=== PATIENT | male | born 1965 | race African-American/Black ===

== ENCOUNTER 2017-08-09 12:44 | Inpatient (IN) | payer OTHER ==
[2017-08-09 14:01] VITALS: BMI 22.1
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
[2017-08-09] MEDS ORDERED: ACETAMINOPHEN 325 MG TABLET (FP) PO PRN (18:40)
[2017-08-09] MEDS ORDERED: MAGNESIUM HYDROX 2400MG/30ML ORAL SUSPENSION 30 ML CUP PO PRN (18:40)
[2017-08-09] MEDS ORDERED: MAG HYDROX/AL HYDROX/SIMETH 30 ML UNIT-DOSE CUP PO PRN (18:40)
[2017-08-09] MEDS ORDERED: IBUPROFEN 400 MG TABLET (FP) PO PRN (18:40)
[2017-08-09] MEDS ORDERED: hydrOXYzine PAMOATE 50 MG CAPSULE (FP) PO PRN (18:40)
[2017-08-09] MEDS ORDERED: MAGNESIUM CITRATE 300 ML BOTTLE PO PRN (18:40)
[2017-08-09] MEDS ORDERED: guaiFENesin/D-METHORPHAN HB 10 ML UNIT-DOSE CUPS PO PRN (18:40)
[2017-08-09] MEDS ORDERED: NICOTINE POLACRILEX 2 MG GUM BUC PRN (18:40)
[2017-08-09] MEDS ORDERED: P-EPHED 60MG/TRIPROLIDI 2.5MG TABLET PO PRN (18:40)
[2017-08-09] MEDS ORDERED: LOPERAMIDE HCL 2 MG CAPSULE PO PRN (18:40)
[2017-08-09] MEDS ORDERED: MENTHOL/PHENOL 1 EACH UD MM PRN (18:40)
[2017-08-09] MEDS ORDERED: METHADONE HCL 10 MG TABLET (FOR DETOX USE ONLY) PO ONE ×2 (19:00→23:00)
[2017-08-09] MEDS: diazePAM 5 MG TABLET PO PRN (19:38)
[2017-08-09] MEDS: NICOTINE 14 MG/24 HOURS TOPICAL PATCH TD SCH (19:40)
[2017-08-09] MEDS: THIAMINE HCL 100 MG TABLET (FP) PO SCH (22:47)
[2017-08-10 02:00] LABS: URINE APPEARANCE CLEAR; URINE BILIRUBIN NEGATIVE (NEGATIVE); URINE BLOOD NEGATIVE (NEGATIVE); URINE COLOR YELLOW; URINE GLUCOSE (UA) NEGATIVE (NEGATIVE); URINE KETONE NEGATIVE (NEGATIVE); URINE LEUK ESTERASE NEGATIVE (NEGATIVE); URINE NITRITE NEGATIVE (NEGATIVE); URINE PROTEIN NEGATIVE (NEGATIVE); URINE UROBILINOGEN NEGATIVE mg/dL (0.2-1.0)
[2017-08-10] MEDS: INSULIN SLIDING SCALE (NOVOLOG) 1 VIAL SQ SCH ×2 (06:14→17:43)
[2017-08-10] MEDS ORDERED: METHADONE HCL 10 MG TABLET (FOR DETOX USE ONLY) PO ONE (10:00)
[2017-08-10] MEDS: diazePAM 5 MG TABLET PO PRN (10:39)
[2017-08-10] MEDS: PRENATAL VITAMINS W/ FOLIC ACID TABLET (FP) PO SCH (10:39)
[2017-08-10] MEDS: LISINOPRIL 10 MG TABLET (FP) PO SCH (10:39)
[2017-08-10] MEDS: HYDROCHLOROTHIAZIDE 12.5 MG CAPSULE (FP) PO SCH (10:39)
[2017-08-10] MEDS: NICOTINE 14 MG/24 HOURS TOPICAL PATCH TD SCH (10:39)
[2017-08-10] MEDS: metFORMIN HCL 500 MG TABLET (FP) PO SCH (10:39)
[2017-08-10 10:52] LABS: HEMATOCRIT 41.3 % (35.4-49); HEMOGLOBIN 13.5 GM/dL (11.7-16.9); MCH 27.5 pg (25.7-33.7); MCHC 32.7 g/dl (32.0-35.9); MEAN CELL VOLUME 84.1 fl (80-96); MEAN PLT VOLUME 9.2 fl (7.5-11.1); PLATELET COUNT 241 K/MM3 (134-434); RBC 4.91 M/mm3 (4.00-5.60); WHITE BLOOD COUNT 5.9 K/mm3 (4.0-10.0)
[2017-08-10 11:21] LABS: CHLORIDE 104 mmol/L (98-107); POTASSIUM 4.8 mmol/L (3.5-5.1); SODIUM 141 mmol/L (136-145)
[2017-08-10 11:43] LABS: ALBUMIN 4.1 g/dl (3.4-5.0); ALK PHOS 57 U/L (45-117); ANION GAP 6 (8-16); BILIRUBIN,TOTAL 1.2 mg/dL (0.2-1.0); BLOOD UREA NITROGEN 14 mg/dL (7-18); CALCIUM 9.1 mg/dL (8.5-10.1); CO2 31 mmol/L (21-32); CREATININE 1.4 mg/dL (0.7-1.3); GLUCOSE,RANDOM 81 mg/dL (74-106); SGOT/AST 13 U/L (15-37); SGPT/ALT 16 U/L (12-78); TOT PROT 6.9 g/dl (6.4-8.2)
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
--- NOTE | 2017-08-10 16:36 | PN ---
S COWS - Scale Resting Pulse: 0= [place] 80 or Below Sweatin= Chills/Flushing Restless Observation: 1= Difficult to Sit Still Pupil Size: 0= Normal to Room Light Bone or Joint Aches: 2= Severe Diffuse Aches Runny Nose/ Eye Tearin= None GI Upset > 30mins: 2= Nausea/Diarrhea Tremor Observation of Outstretched Hands: 2= Slight Tremor Visible Yawning Observation: 1= 1-2x During Session Anxiety or Irritability: 2=Irritable/Anxious Goose Flesh Skin: 3=Piloerection COWS Score: 14 S Progress Note (SOAP) Subjective: Nausea, Anxious, Tremors, Sweating. Objective: PT. A & O X 3, OBSERVED AMBULATING ON UNIT. NO ACUTE DISTRESS. 08/10/17 16:36 Vital Signs Temperature 98.0 F 08/10/17 13:40 Pulse Rate 58 L 08/10/17 13:40 Respiratory Rate 18 08/10/17 13:40 Blood Pressure 143/93 08/10/17 13:40 O2 Sat by Pulse Oximetry (%) Laboratory Tests 08/09/17 08/10/17 08/10/17 22:51 05:28 06:00 WBC 5.9 RBC 4.91 Hgb 13.5 Hct 41.3 MCV 84.1 MCH 27.5 MCHC 32.7 RDW 14.0 Plt Count 241 MPV 9.2 Sodium Potassium Chloride Carbon Dioxide Anion Gap BUN Creatinine Creat Clearance w eGFR POC Glucometer 99 Random Glucose Calcium Total Bilirubin AST ALT Alkaline Phosphatase Total Protein Albumin Urine Color Yellow Urine Appearance Clear Urine pH 5.0 Ur Specific [place] 1.017 Urine Protein Negative Urine Glucose (UA) Negative Urine Ketones Negative Urine Blood Negative Urine Nitrite Negative Urine Bilirubin Negative Urine Urobilinogen Negative Ur Leukocyte Esterase Negative RPR Titer 08/10/17 08/10/17 08/10/17 06:00 06:00 15:44 WBC RBC Hgb Hct MCV MCH MCHC RDW Plt Count MPV Sodium 141 Potassium 4.8 Chloride 104 Carbon Dioxide 31 Anion Gap 6 L BUN 14 Creatinine 1.4 H Creat Clearance w eGFR 53.64 POC Glucometer 130 Random Glucose 81 Calcium 9.1 Total Bilirubin 1.2 H D AST 13 L ALT 16 D Alkaline Phosphatase 57 Total Protein 6.9 Albumin 4.1 Urine Color Urine Appearance Urine pH Ur Specific [place] Urine Protein Urine Glucose (UA) Urine Ketones Urine Blood Urine Nitrite Urine Bilirubin Urine Urobilinogen Ur Leukocyte Esterase RPR Titer Nonreactive LABS NOTED. Assessment: 08/10/17 16:36 WITHDRAWAL SYMPTOMS. Plan: CONTINUE DETOX. BMP ON 08/12/2017 FOR ABNORMAL ADMISSION RENAL LAB VALUES. D/C IBUPROFEN AND MAGNESIUM-CONTAINING MEDS. INCREASE DAILY PO FLUID INTAKE.
[2017-08-10] MEDS: MIRTAZAPINE 15 MG TABLET (FP) PO SCH (22:45)
[2017-08-10] MEDS: THIAMINE HCL 100 MG TABLET (FP) PO SCH (22:45)
[2017-08-11] MEDS: INSULIN SLIDING SCALE (NOVOLOG) 1 VIAL SQ SCH ×2 (06:45→16:30)
[2017-08-11] MEDS ORDERED: METHADONE HCL 5 MG TABLET (FOR DETOX USE ONLY) PO ONE (10:00)
[2017-08-11] MEDS: NICOTINE 14 MG/24 HOURS TOPICAL PATCH TD SCH (10:24)
[2017-08-11] MEDS: LISINOPRIL 10 MG TABLET (FP) PO SCH (10:24)
[2017-08-11] MEDS: diazePAM 5 MG TABLET PO PRN (10:24)
[2017-08-11] MEDS: HYDROCHLOROTHIAZIDE 12.5 MG CAPSULE (FP) PO SCH (10:24)
[2017-08-11] MEDS: PRENATAL VITAMINS W/ FOLIC ACID TABLET (FP) PO SCH (10:24)
[2017-08-11] MEDS: metFORMIN HCL 500 MG TABLET (FP) PO SCH (10:24)
--- NOTE | 2017-08-11 13:21 | EKG ---
Test Reason : Blood Pressure : / mmHG Vent. Rate : 057 BPM Atrial Rate : 057 BPM P-R Int : 160 ms QRS Dur : 086 ms QT Int : 440 ms P-R-T Axes : 060 036 -23 degrees QTc Int : 428 ms SINUS BRADYCARDIA WITH SINUS ARRHYTHMIA POOR R WAVE PROGRESSION ABNORMAL ECG NO PREVIOUS ECGS AVAILABLE CLINICAL CORRELATION IS RECOMMENDED Confirmed by BENOIT WILLIAMSON MD ([id number]) on 08/11/2017 1:21:04 PM Referred By: Confirmed By:BENOIT WILLIAMSON MD
--- NOTE | 2017-08-11 16:42 | PN ---
S COWS - Scale Resting Pulse: 1= [place] 81-100 Sweatin= No chills or Flushing Restless Observation: 0= Sits Still Pupil Size: 0= Normal to Room Light Bone or Joint Aches: 1= Mild Discomfort Runny Nose/ Eye Tearin= None GI Upset > 30mins: 3= Vomiting/Diarrhea Tremor Observation of Outstretched Hands: 2= Slight Tremor Visible Yawning Observation: 1= 1-2x During Session Anxiety or Irritability: 2=Irritable/Anxious Goose Flesh Skin: 3=Piloerection COWS Score: 13 BHS Progress Note (SOAP) Subjective: Vomiting, Anxious, Fatigue, Tremors. Objective: PT A & O X 3, OBSERVED AMBULATING ON UNIT. NO ACUTE DISTRESS. 08/11/17 16:42 Vital Signs Temperature 96.6 F L 08/11/17 09:54 Pulse Rate 78 08/11/17 09:54 Respiratory Rate 18 08/11/17 09:54 Blood Pressure 164/90 08/11/17 09:54 O2 Sat by Pulse Oximetry (%) Laboratory Tests 08/09/17 08/10/17 08/10/17 22:51 05:28 06:00 WBC 5.9 RBC 4.91 Hgb 13.5 Hct 41.3 MCV 84.1 MCH 27.5 MCHC 32.7 RDW 14.0 Plt Count 241 MPV 9.2 Sodium Potassium Chloride Carbon Dioxide Anion Gap BUN Creatinine Creat Clearance w eGFR POC Glucometer 99 Random Glucose Calcium Total Bilirubin AST ALT Alkaline Phosphatase Total Protein Albumin Urine Color Yellow Urine Appearance Clear Urine pH 5.0 Ur Specific [place] 1.017 Urine Protein Negative Urine Glucose (UA) Negative Urine Ketones Negative Urine Blood Negative Urine Nitrite Negative Urine Bilirubin Negative Urine Urobilinogen Negative Ur Leukocyte Esterase Negative RPR Titer Hepatitis C Antibody 08/10/17 08/10/17 08/10/17 06:00 06:00 08:30 WBC RBC Hgb Hct MCV MCH MCHC RDW Plt Count MPV Sodium 141 Potassium 4.8 Chloride 104 Carbon Dioxide 31 Anion Gap 6 L BUN 14 Creatinine 1.4 H Creat Clearance w eGFR 53.64 POC Glucometer Random Glucose 81 Calcium 9.1 Total Bilirubin 1.2 H D AST 13 L ALT 16 D Alkaline Phosphatase 57 Total Protein 6.9 Albumin 4.1 Urine Color Urine Appearance Urine pH Ur Specific [place] Urine Protein Urine Glucose (UA) Urine Ketones Urine Blood Urine Nitrite Urine Bilirubin Urine Urobilinogen Ur Leukocyte Esterase RPR Titer Nonreactive Hepatitis C Antibody >11.0 H 08/10/17 15:44 WBC RBC Hgb Hct MCV MCH MCHC RDW Plt Count MPV Sodium Potassium Chloride Carbon Dioxide Anion Gap BUN Creatinine Creat Clearance w eGFR POC Glucometer 130 Random Glucose Calcium Total Bilirubin AST ALT Alkaline Phosphatase Total Protein Albumin Urine Color Urine Appearance Urine pH Ur Specific [place] Urine Protein Urine Glucose (UA) Urine Ketones Urine Blood Urine Nitrite Urine Bilirubin Urine Urobilinogen Ur Leukocyte Esterase RPR Titer Hepatitis C Antibody LABS NOTED. PATIENT HAS A HISTORY OF HEPATITIS C (TREATED). 08/11/17 16:45 Assessment: 08/11/17 16:43 WITHDRAWAL SYMPTOMS. Plan: CONTINUE DETOX.
[2017-08-11] MEDS: THIAMINE HCL 100 MG TABLET (FP) PO SCH (22:45)
[2017-08-11] MEDS: MIRTAZAPINE 15 MG TABLET (FP) PO SCH (22:45)
[2017-08-12] MEDS: diazePAM 5 MG TABLET PO PRN (06:06)
[2017-08-12] MEDS: INSULIN SLIDING SCALE (NOVOLOG) 1 VIAL SQ SCH ×2 (06:37→16:41)
[2017-08-12 09:59] LABS: CHLORIDE 104 mmol/L (98-107); POTASSIUM 3.8 mmol/L (3.5-5.1); SODIUM 141 mmol/L (136-145)
[2017-08-12] MEDS ORDERED: METHADONE HCL 5 MG TABLET (FOR DETOX USE ONLY) PO ONE (10:00)
[2017-08-12 10:05] LABS: ANION GAP 9 (8-16); BLOOD UREA NITROGEN 16 mg/dL (7-18); CALCIUM 8.4 mg/dL (8.5-10.1); CO2 28 mmol/L (21-32); CREATININE 1.3 mg/dL (0.7-1.3); GLUCOSE,RANDOM 103 mg/dL (74-106)
[2017-08-12] MEDS: HYDROCHLOROTHIAZIDE 12.5 MG CAPSULE (FP) PO SCH (10:26)
[2017-08-12] MEDS: LISINOPRIL 10 MG TABLET (FP) PO SCH (10:26)
[2017-08-12] MEDS: PRENATAL VITAMINS W/ FOLIC ACID TABLET (FP) PO SCH (10:26)
[2017-08-12] MEDS: metFORMIN HCL 500 MG TABLET (FP) PO SCH (10:27)
[2017-08-12] MEDS: NICOTINE 14 MG/24 HOURS TOPICAL PATCH TD SCH (10:27)
--- NOTE | 2017-08-12 11:00 | PN ---
S Progress Note (SOAP) Subjective: ANXIETY,SWEATS,NAUSEA/VOMITING. Objective: 08/12/17 10:56 Vital Signs Temperature 97.7 F 08/12/17 09:04 Pulse Rate 49 L 08/12/17 09:04 Respiratory Rate 18 08/12/17 09:04 Blood Pressure 149/94 08/12/17 09:04 O2 Sat by Pulse Oximetry (%) Laboratory Last Values WBC 5.9 K/mm3 (4.0-10.0) 08/10/17 06:00 RBC 4.91 M/mm3 (4.00-5.60) 08/10/17 06:00 Hgb 13.5 GM/dL (11.7-16.9) 08/10/17 06:00 Hct 41.3 % (35.4-49) 08/10/17 06:00 MCV 84.1 fl (80-96) 08/10/17 06:00 MCH 27.5 pg (25.7-33.7) 08/10/17 06:00 MCHC 32.7 g/dl (32.0-35.9) 08/10/17 06:00 RDW 14.0 % (11.9-15.9) 08/10/17 06:00 Plt Count 241 K/MM3 (134-434) 08/10/17 06:00 MPV 9.2 fl (7.5-11.1) 08/10/17 06:00 Sodium 141 mmol/L (136-145) 08/12/17 07:00 Potassium 3.8 mmol/L (3.5-5.1) D 08/12/17 07:00 Chloride 104 mmol/L (98-107) 08/12/17 07:00 Carbon Dioxide 28 mmol/L (21-32) 08/12/17 07:00 Anion Gap 9 (8-16) 08/12/17 07:00 BUN 16 mg/dL (7-18) 08/12/17 07:00 Creatinine 1.3 mg/dL (0.7-1.3) 08/12/17 07:00 Creat Clearance w eGFR 53.64 (>60) 08/10/17 06:00 POC Glucometer 103 UNITS (80-120) 08/12/17 06:04 Random Glucose 103 mg/dL (74-106) D 08/12/17 07:00 Calcium 8.4 mg/dL (8.5-10.1) L 08/12/17 07:00 Total Bilirubin 1.2 mg/dL (0.2-1.0) H D 08/10/17 06:00 AST 13 U/L (15-37) L 08/10/17 06:00 ALT 16 U/L (12-78) D 08/10/17 06:00 Alkaline Phosphatase 57 U/L (45-117) 08/10/17 06:00 Total Protein 6.9 g/dl (6.4-8.2) 08/10/17 06:00 Albumin 4.1 g/dl (3.4-5.0) 08/10/17 06:00 Urine Color Yellow 08/09/17 22:51 Urine Appearance Clear 08/09/17 22:51 Urine pH 5.0 (5.0-8.0) 08/09/17 22:51 Ur Specific [place] 1.017 (1.001-1.035) 08/09/17 22:51 Urine Protein Negative (NEGATIVE) 08/09/17 22:51 Urine Glucose (UA) Negative (NEGATIVE) 08/09/17 22:51 Urine Ketones Negative (NEGATIVE) 08/09/17 22:51 Urine Blood Negative (NEGATIVE) 08/09/17 22:51 Urine Nitrite Negative (NEGATIVE) 08/09/17 22:51 Urine Bilirubin Negative (NEGATIVE) 08/09/17 22:51 Urine Urobilinogen Negative mg/dL (0.2-1.0) 08/09/17 22:51 Ur Leukocyte Esterase Negative (NEGATIVE) 08/09/17 22:51 RPR Titer Nonreactive (NONREACTIVE) 08/10/17 06:00 Hepatitis C Antibody >11.0 s/co ratio (0.0-0.9) H 08/10/17 08:30 PT HAS A HX OF HEP C TREATMENT WITH [facility]. Assessment: 08/12/17 11:00 WITHDRAWAL SX Plan: CONTINUE DETOX ZOFRAN PRN
[2017-08-12] MEDS ORDERED: ONDANSETRON *ODT* 4 MG TABLET SL PRN (11:04)
--- NOTE | 2017-08-12 12:17 | PN ---
Psychiatric Progress Note Vital Signs: Vital Signs Period Temp Pulse Resp BP Sys/Flores Pulse Ox Last 24 Hr 97.4 F-98.7 F 49-94 18-20 119-152/71-94 Date of Session: 08/12/17 Chief Complaint:: " I want to restart antidepressant medications.I feel depressed." HPI: Day 4 of detoxification treatment for opioid and cocaine dependence.Patient approached jingle writer with complaints of anhedonia,low energy, dysphoric/depressed mood and feelings of worthlessness.Mr Montelongo recalls that wellbutrin " used to be helpful " and he expresses the wish to resume that medication. ROS: Unremarkable. Current Medications: Active Medications Generic Name Dose Route Start Last Admin Trade Name Freq PRN Reason Stop Dose Admin Acetaminophen 650 mg 08/09/17 18:40 Tylenol - PO Q4H PRN FEVER Diazepam 10 mg 08/09/17 18:40 08/12/17 06:06 Valium - PO 08/12/17 18:39 10 mg Q4H PRN Administration WITHDRAWAL(CONT SUBST) Eucalyptus/Menthol/Phenol/Sorbitol 1 each 08/09/17 18:40 Cepastat Lozenge - MM Q4H PRN SORE THROAT Guaifenesin 10 ml 08/09/17 18:40 Robitussin Dm - PO Q6H PRN COUGH Hydrochlorothiazide 12.5 mg 08/10/17 10:00 08/12/17 10:26 Hctz - PO 12.5 mg DAILY JG Administration Hydroxyzine Pamoate 50 mg 08/09/17 18:40 08/09/17 22:47 Vistaril - PO 50 mg Q4H PRN Administration AGITATION Insulin Aspart 1 vial 08/10/17 07:00 08/12/17 06:37 Novolog Vial Sliding Scale - SQ Not Given [facility] Protocol Lisinopril 10 mg 08/10/17 10:00 08/12/17 10:26 Prinivil PO 10 mg DAILY JG Administration Loperamide HCl 4 mg 08/09/17 18:40 Imodium - PO Q6H PRN DIARRHEA Metformin HCl 500 mg 08/10/17 10:00 08/12/17 10:27 Glucophage - PO 500 mg DAILY JG Administration Methadone HCl 5 mg 08/14/17 06:00 Dolophine - PO 02/07/18 06:01 ONCE@0600 ONE Methadone HCl 10 mg 08/13/17 10:00 Dolophine - PO 08/13/17 10:01 ONCE ONE Mirtazapine 15 mg 08/10/17 22:00 08/11/17 22:45 Remeron - PO Not Given HS JG Nicotine 14 mg 08/09/17 18:45 08/12/17 10:27 Nicoderm Patch - TD Not Given DAILY JG Nicotine Polacrilex 2 mg 08/09/17 18:40 Nicorette Gum - BUC Q2H PRN NICOTINE REPLACEMENT RX Ondansetron HCl 4 mg 08/12/17 11:04 08/12/17 11:30 Zofran Odt - SL 4 mg Q6H PRN Administration NAUSEA AND/OR VOMITING Multivit/Folic Acid/Iron 1 tab 08/10/17 10:00 08/12/17 10:26 Vitamins (Sjr) - PO 1 tab DAILY JG Administration Pseudoephedrine/Triprolidine 1 combo 08/09/17 18:40 Actifed - PO TID PRN NASAL CONGESTION Thiamine HCl 100 mg 08/09/17 22:00 08/11/17 22:45 Vitamin B1 - PO Not Given HS JG Medication(s) Change(s): Available antidepressants reviewed with patient.Bupropion is selected on the basis of patient's preferences,good tolerability and prior history of efficacy.Wellbutrin XL 150 mg po daily is added to the regimen.Side effects/benefits discussed with patient.He is made aware of risk of seizures.Consent (verbal) obtained from the patient. Current Side Effect: No Lab tests ordered: No Lab tests reviewed: Yes Provider note:: Met with patient. Total face to face time:: 35 Mental Status Exam - Mental Status Exam Alert and Oriented to: Time, Place, Person Cognitive Function: Good Patient Appearance: Well Groomed Mood: Sad, Withdrawn, Anxious Affect: Mood Congruent, Constricted Patient Behavior: Appropriate, Cooperative Speech Pattern: Clear, Appropriate Voice Loudness: Normal Thought Process: Intact, Goal Oriented Thought Disorder: Not Present Hallucinations: Denies Suicidal Ideation: Denies Homicidal Ideation: Denies Insight/Judgement: Fair Sleep: Fair Appetite: Good Muscle strength/Tone: Normal Gait/Station: Normal Psychiatric Treatment Plan - Problem List (1) Depressive disorder Current Visit: Yes (2) Opioid dependence with withdrawal Current Visit: Yes (3) Cocaine dependence Current Visit: Yes Qualifiers: Substance use status: uncomplicated Qualified Code(s): F14.20 - Cocaine dependence, uncomplicated (4) Nicotine dependence Current Visit: Yes Qualifiers: Nicotine product type: cigarettes Substance use status: in withdrawal Qualified Code(s): F17.213 - Nicotine dependence, cigarettes, with withdrawal (5) Substance induced mood disorder Current Visit: Yes (6) PTSD (post-traumatic stress disorder) Current Visit: No Comment: As per records.Currently asymptomatic.Non compliant with medications.Lost to OPD care. (7) Insomnia Current Visit: Yes
[2017-08-12] MEDS: THIAMINE HCL 100 MG TABLET (FP) PO SCH (22:35)
[2017-08-12] MEDS: MIRTAZAPINE 15 MG TABLET (FP) PO SCH (22:35)
[2017-08-13] MEDS: INSULIN SLIDING SCALE (NOVOLOG) 1 VIAL SQ SCH ×2 (06:48→16:45)
[2017-08-13] MEDS ORDERED: METHADONE HCL 10 MG TABLET (FOR DETOX USE ONLY) PO ONE (10:00)
[2017-08-13] MEDS: PRENATAL VITAMINS W/ FOLIC ACID TABLET (FP) PO SCH (10:21)
[2017-08-13] MEDS: metFORMIN HCL 500 MG TABLET (FP) PO SCH (10:21)
[2017-08-13] MEDS: LISINOPRIL 10 MG TABLET (FP) PO SCH (10:21)
[2017-08-13] MEDS: HYDROCHLOROTHIAZIDE 12.5 MG CAPSULE (FP) PO SCH (10:21)
[2017-08-13] MEDS: NICOTINE 14 MG/24 HOURS TOPICAL PATCH TD SCH (10:22)
--- NOTE | 2017-08-13 11:20 | PN ---
[facility] Progress Note (SOAP) Subjective: SLIGHT ANXIETY. REPORTS FEELING BETTER. NAD. Objective: 08/13/17 11:16 Vital Signs Temperature 98.1 F 08/13/17 09:10 Pulse Rate 49 L 08/13/17 09:10 Respiratory Rate 18 08/13/17 09:10 Blood Pressure 155/86 08/13/17 09:10 O2 Sat by Pulse Oximetry (%) Laboratory Last Values WBC 5.9 K/mm3 (4.0-10.0) 08/10/17 06:00 RBC 4.91 M/mm3 (4.00-5.60) 08/10/17 06:00 Hgb 13.5 GM/dL (11.7-16.9) 08/10/17 06:00 Hct 41.3 % (35.4-49) 08/10/17 06:00 MCV 84.1 fl (80-96) 08/10/17 06:00 MCH 27.5 pg (25.7-33.7) 08/10/17 06:00 MCHC 32.7 g/dl (32.0-35.9) 08/10/17 06:00 RDW 14.0 % (11.9-15.9) 08/10/17 06:00 Plt Count 241 K/MM3 (134-434) 08/10/17 06:00 MPV 9.2 fl (7.5-11.1) 08/10/17 06:00 Sodium 141 mmol/L (136-145) 08/12/17 07:00 Potassium 3.8 mmol/L (3.5-5.1) D 08/12/17 07:00 Chloride 104 mmol/L (98-107) 08/12/17 07:00 Carbon Dioxide 28 mmol/L (21-32) 08/12/17 07:00 Anion Gap 9 (8-16) 08/12/17 07:00 BUN 16 mg/dL (7-18) 08/12/17 07:00 Creatinine 1.3 mg/dL (0.7-1.3) 08/12/17 07:00 Creat Clearance w eGFR 53.64 (>60) 08/10/17 06:00 POC Glucometer 94 UNITS (80-120) 08/13/17 05:36 Random Glucose 103 mg/dL (74-106) D 08/12/17 07:00 Calcium 8.4 mg/dL (8.5-10.1) L 08/12/17 07:00 Total Bilirubin 1.2 mg/dL (0.2-1.0) H D 08/10/17 06:00 AST 13 U/L (15-37) L 08/10/17 06:00 ALT 16 U/L (12-78) D 08/10/17 06:00 Alkaline Phosphatase 57 U/L (45-117) 08/10/17 06:00 Total Protein 6.9 g/dl (6.4-8.2) 08/10/17 06:00 Albumin 4.1 g/dl (3.4-5.0) 08/10/17 06:00 Urine Color Yellow 08/09/17 22:51 Urine Appearance Clear 08/09/17 22:51 Urine pH 5.0 (5.0-8.0) 08/09/17 22:51 Ur Specific [place] 1.017 (1.001-1.035) 08/09/17 22:51 Urine Protein Negative (NEGATIVE) 08/09/17 22:51 Urine Glucose (UA) Negative (NEGATIVE) 08/09/17 22:51 Urine Ketones Negative (NEGATIVE) 08/09/17 22:51 Urine Blood Negative (NEGATIVE) 08/09/17 22:51 Urine Nitrite Negative (NEGATIVE) 08/09/17 22:51 Urine Bilirubin Negative (NEGATIVE) 08/09/17 22:51 Urine Urobilinogen Negative mg/dL (0.2-1.0) 08/09/17 22:51 Ur Leukocyte Esterase Negative (NEGATIVE) 08/09/17 22:51 RPR Titer Nonreactive (NONREACTIVE) 08/10/17 06:00 Hepatitis C Antibody >11.0 s/co ratio (0.0-0.9) H 08/10/17 08:30 EKG:SINUS BRADYCARDIA WITH SINUS ARRHYTHMIA POOR R WAVE PROGRESSION ABNORMAL ECG NO PREVIOUS ECG PT IS ASSYMPTOMATIC Assessment: 08/13/17 11:16 WITHDRAWAL SX Plan: CONTINUE DETOX REPEAT EKG FOR CORRELATION
--- NOTE | 2017-08-13 13:09 | EKG ---
Test Reason : Blood Pressure : / mmHG Vent. Rate : 058 BPM Atrial Rate : 058 BPM P-R Int : 170 ms QRS Dur : 086 ms QT Int : 444 ms P-R-T Axes : 069 038 022 degrees QTc Int : 435 ms SINUS BRADYCARDIA OTHERWISE NORMAL ECG WHEN COMPARED WITH ECG OF 09-AUG-2017 19:45, NONSPECIFIC T WAVE ABNORMALITY HAS REPLACED INVERTED T WAVES IN INFERIOR LEADS Confirmed by Harsha Funez ([id number]) on 08/13/2017 1:09:24 PM Referred By: Confirmed By:Harsha Funez
[2017-08-13] MEDS: THIAMINE HCL 100 MG TABLET (FP) PO SCH (22:22)
[2017-08-13] MEDS: MIRTAZAPINE 15 MG TABLET (FP) PO SCH (22:22)
[2017-08-14] MEDS ORDERED: METHADONE HCL 5 MG TABLET (FOR DETOX USE ONLY) PO ONE (06:00)
[2017-08-14] MEDS: INSULIN SLIDING SCALE (NOVOLOG) 1 VIAL SQ SCH (07:08)
[2017-08-14 09:10] VITALS: BP 127/87; PULSE 63; TEMP 96.9
[2017-08-14] MEDS: NICOTINE 14 MG/24 HOURS TOPICAL PATCH TD SCH (10:00)
[2017-08-14] MEDS: HYDROCHLOROTHIAZIDE 12.5 MG CAPSULE (FP) PO SCH (10:00)
[2017-08-14] MEDS: metFORMIN HCL 500 MG TABLET (FP) PO SCH (10:00)
[2017-08-14] MEDS: LISINOPRIL 10 MG TABLET (FP) PO SCH (10:00)
--- NOTE | 2017-08-14 10:01 | DS ---
[facility] Detox Discharge Summary Admission Date: 08/09/17 Discharge Date: 08/14/17 - History Present History: Cocaine Dependence, Opioid Dependence Additional Comments: DETOX COMPLETED.ALERT O X 3. NAD. Pertinent Past History: DM HTN HEP C - Physical Exam Results Vital Signs: Vital Signs Temperature 96.9 F L 08/14/17 09:10 Pulse Rate 63 08/14/17 09:10 Respiratory Rate 18 08/14/17 09:10 Blood Pressure 127/87 08/14/17 09:10 O2 Sat by Pulse Oximetry (%) Pertinent Admission Physical Exam Findings: WITHDRAWAL SX Laboratory Last Values WBC 5.9 K/mm3 (4.0-10.0) 08/10/17 06:00 RBC 4.91 M/mm3 (4.00-5.60) 08/10/17 06:00 Hgb 13.5 GM/dL (11.7-16.9) 08/10/17 06:00 Hct 41.3 % (35.4-49) 08/10/17 06:00 MCV 84.1 fl (80-96) 08/10/17 06:00 MCH 27.5 pg (25.7-33.7) 08/10/17 06:00 MCHC 32.7 g/dl (32.0-35.9) 08/10/17 06:00 RDW 14.0 % (11.9-15.9) 08/10/17 06:00 Plt Count 241 K/MM3 (134-434) 08/10/17 06:00 MPV 9.2 fl (7.5-11.1) 08/10/17 06:00 Sodium 141 mmol/L (136-145) 08/12/17 07:00 Potassium 3.8 mmol/L (3.5-5.1) D 08/12/17 07:00 Chloride 104 mmol/L (98-107) 08/12/17 07:00 Carbon Dioxide 28 mmol/L (21-32) 08/12/17 07:00 Anion Gap 9 (8-16) 08/12/17 07:00 BUN 16 mg/dL (7-18) 08/12/17 07:00 Creatinine 1.3 mg/dL (0.7-1.3) 08/12/17 07:00 Creat Clearance w eGFR 53.64 (>60) 08/10/17 06:00 POC Glucometer 96 UNITS (80-120) 08/14/17 05:51 Random Glucose 103 mg/dL (74-106) D 08/12/17 07:00 Calcium 8.4 mg/dL (8.5-10.1) L 08/12/17 07:00 Total Bilirubin 1.2 mg/dL (0.2-1.0) H D 08/10/17 06:00 AST 13 U/L (15-37) L 08/10/17 06:00 ALT 16 U/L (12-78) D 08/10/17 06:00 Alkaline Phosphatase 57 U/L (45-117) 08/10/17 06:00 Total Protein 6.9 g/dl (6.4-8.2) 08/10/17 06:00 Albumin 4.1 g/dl (3.4-5.0) 08/10/17 06:00 Urine Color Yellow 08/09/17 22:51 Urine Appearance Clear 08/09/17 22:51 Urine pH 5.0 (5.0-8.0) 08/09/17 22:51 Ur Specific [place] 1.017 (1.001-1.035) 08/09/17 22:51 Urine Protein Negative (NEGATIVE) 08/09/17 22:51 Urine Glucose (UA) Negative (NEGATIVE) 08/09/17 22:51 Urine Ketones Negative (NEGATIVE) 08/09/17 22:51 Urine Blood Negative (NEGATIVE) 08/09/17 22:51 Urine Nitrite Negative (NEGATIVE) 08/09/17 22:51 Urine Bilirubin Negative (NEGATIVE) 08/09/17 22:51 Urine Urobilinogen Negative mg/dL (0.2-1.0) 08/09/17 22:51 Ur Leukocyte Esterase Negative (NEGATIVE) 08/09/17 22:51 RPR Titer Nonreactive (NONREACTIVE) 08/10/17 06:00 Hepatitis C Antibody >11.0 s/co ratio (0.0-0.9) H 08/10/17 08:30 HCV Quantitation Hcv not detected IU/mL (.) 08/12/17 08:45 HCV RNA 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 TNP 08/12/17 08:45 - Treatment Hospital Course: Detox Protocol Followed, Detoxed Safely, Responded well, Discharged Condition Good, Rehab Referral Accepted Patient has Accepted a Rehab Referral to: [facility] - Medication Discharge Medications: Ambulatory Orders Hydrochlorothiazide [Hctz -] 12.5 mg PO DAILY #30 cap 03/26/16 Lisinopril 10 mg PO DAILY 08/09/17 metFORMIN HCL [Glucophage -] 500 mg PO DAILY 08/09/17 - Diagnosis (1) Nicotine dependence Current Visit: Yes Status: Acute Qualifiers: Nicotine product type: cigarettes Substance use status: in withdrawal Qualified Code(s): F17.213 - Nicotine dependence, cigarettes, with withdrawal (2) Opioid dependence with withdrawal Current Visit: Yes Status: Acute (3) Diabetes mellitus Current Visit: Yes Status: Chronic Qualifiers: Diabetes mellitus type: type 2 Diabetes mellitus complication status: without complication Diabetes mellitus snf insulin use: unspecified terminal operator insulin use status Qualified Code(s): E11.9 - Type 2 diabetes mellitus without complications (4) HTN (hypertension) Current Visit: Yes Status: Chronic Qualifiers: Hypertension type: essential hypertension (5) Hepatitis C Current Visit: Yes Status: Chronic Qualifiers: Viral hepatitis chronicity: chronic Hepatic coma status: without hepatic coma Qualified Code(s): B18.2 - Chronic viral hepatitis C - AMA Did Patient Leave Against Medical Advice: No
[2017-08-14] MEDS: PRENATAL VITAMINS W/ FOLIC ACID TABLET (FP) PO SCH (10:02)
== END 2017-08-14 10:43 | disposition home or self-care (01) | DRG 773 ==
LOC: YASAS 12:44 → Y6N 16:25 → Y3N 16:31
PROVIDERS: ADMIT Internal Medicine; ATTEND Internal Medicine
PROC: HZ2ZZZZ Detoxification Services for Substance Abuse Treatment (ICD-10-PCS; principal; 2017-08-09)
DX: F11.23 Opioid dependence with withdrawal (principal); F14.20 Cocaine dependence, uncomplicated; F17.213 Nicotine dependence, cigarettes, with withdrawal; F19.24 Other psychoactive substance dependence with psychoactive substance-induced mood disorder; F41.9 Anxiety disorder, unspecified; F43.10 Post-traumatic stress disorder, unspecified; F32.9 Major depressive disorder, single episode, unspecified; I10 Essential (primary) hypertension; E11.9 Type 2 diabetes mellitus without complications; B18.2 Chronic viral hepatitis C; D57.3 Sickle-cell trait; R00.1 Bradycardia, unspecified; L49.9 Exfoliation due to erythematous condition involving 90 or more percent of body surface; G47.00 Insomnia, unspecified; Z79.84 Long term (current) use of oral hypoglycemic drugs; Z91.018 Allergy to other foods; Z91.14 Patient's other noncompliance with medication regimen
CPT/HCPCS: 36415; 71046-TC-FY; 80048; 80053; 81003; 82962; 85027; 86593; 86803; 87522; 93005; 93010